=== PATIENT | male | born 1995 | race Caucasian/White ===

== ENCOUNTER 2021-12-22 08:21 | Outpatient (CLI) | payer OTHER, SELFPAY ==
--- NOTE | 2021-12-22 10:00 | US_ITS ---
WS: [id number] Gallbladder and right upper quadrant ultrasound, 12/22/2021 Clinical Data: GNERALIZED ABDOMINAL PAIN Comparison: None. Findings: The gallbladder shows numerous small stones. The wall measures 0.2 cm with no pericholecystic fluid. The common bile duct is 0.4 cm and there are no intrahepatic ductal abnormalities. Liver shows no cysts, masses or dilated intrahepatic ducts. The echotexture is uniform and there is n ormal portal venous flow. The pancreas is not obscured by overlying bowel gas and no cyst, pseudocyst, or evidence of pancreati tis is noted. Right kidney measures 11.2 cm and no cyst, masses or hydronephrosis can be seen. The aorta and inferior vena cava show no vascular abnormalities. US/US abdomen limited 52951 Impression: Small gallstones.
== END 2021-12-22 08:22 | disposition home or self-care (01) ==
LOC: RAD 08:25
PROVIDERS: PCP Nurse Practitioner Family; Visit Provider Nurse Practitioner Family
DX: R10.84 Generalized abdominal pain (principal); K80.80 Other cholelithiasis without obstruction
CPT/HCPCS: 76705

== ENCOUNTER 2022-01-01 16:39 | Outpatient (CLI) | payer OTHER, SELFPAY ==
[2022-01-01 17:26] LABS: Basophils # 0.1 10^3/uL (0.0-0.1); Eosinophils # 0.1 10^3/uL (0.0-0.8); Eosinophils % 2.2 %; Hematocrit 38.9 % (42.0-52.0); Hemoglobin 13.8 g/dL (11.7-16.6); Lymphocytes # 1.6 10^3/uL (0.8-4.8); Lymphocytes % 32.7 %; Mean Corpuscular HGB Conc 35.5 g/dL (30.0-36.0); Mean Corpuscular Hemoglobin 31.9 pg (28.0-34.0); Mean Corpuscular Volume 89.8 fl (80-94); Mean Platelet Volume 10.1 fL (7.4-10.4); Monocytes # 0.4 10^3/uL (0.2-0.9); Monocytes % 7.6 %; Neutrophils # 2.75 10^3/uL (1.8-7.7); Neutrophils % 56.3 %; Nucleated Red Blood Cells % 0 %; Platelet Count 171 10^3/cmm (130-400); Red Blood Count 4.33 10^6/uL (4.1-5.3); Red Cell Distribution Width 11.8 % (12.1-15.1); White Blood Count 4.9 10^3/uL (4.0-10.0)
== END 2022-01-01 16:40 | disposition home or self-care (01) ==
LOC: LAB 16:42
PROVIDERS: PCP Nurse Practitioner Family; Visit Provider Surgery
DX: K80.20 Calculus of gallbladder without cholecystitis without obstruction (principal); K21.9 Gastro-esophageal reflux disease without esophagitis
CPT/HCPCS: 36415; 85025

== ENCOUNTER 2022-01-09 16:34 | Outpatient (CLI) | payer OTHER, SELFPAY ==
[2022-01-09 17:50] LABS: Alanine Aminotransferase 14 U/L (0-41); Albumin Level 4.6 g/dL (3.5-5.2); Alkaline Phosphatase 61 U/L (40-130); Aspartate Amino Transferase 21 U/L (0-40); Blood Urea Nitrogen 7 mg/dL (6-20); Calcium 8.9 mg/dL (8.5-10.5); Carbon Dioxide 30 mmol/L (22-29); Chloride 101 mmol/L (98-107); Globulin 2.5 g/dL (1.3-4.6); Glomerular Filtration Rate 135.3 mL/min (90-130); Glucose 86 mg/dL (65-115); Osmolality Calculated 287 mOsm/kg (285-295); Sodium 140 mmol/L (136-145); Total Bilirubin 0.8 mg/dL (0.15-1.2); Total Protein 7.1 g/dL (6.6-8.7)
== END 2022-01-09 16:35 | disposition home or self-care (01) ==
LOC: LAB 16:43
PROVIDERS: PCP Nurse Practitioner Family; Visit Provider Surgery
DX: K80.20 Calculus of gallbladder without cholecystitis without obstruction (principal); K21.9 Gastro-esophageal reflux disease without esophagitis
CPT/HCPCS: 36415; 80053

== ENCOUNTER 2022-01-16 10:39 | Day surgery (SDC) | payer OTHER, SELFPAY ==
[2022-01-16] VITALS (11 sets, daily range): BP systolic 132–154; BP diastolic 78–92; PULSE 60–71; RESP 14–18; TEMP 36.2–36.8; O2SAT 95–100
[2022-01-16] MEDS: acetaminophen 1,000 MG/100 ML PIGGYBACK 400 MG IV (12:04)
--- NOTE | 2022-01-16 12:25 | P.ANESASSM_ITS ---
Pre-Anesthetic Assessment Height/Weight: Height 1.93 m Weight 73.482 kg Temp Pulse Resp BP Pulse Ox O2 Del Method 98.2 F 70 16 142/78 100 01/16/22 11:12 01/16/22 11:12 01/16/22 11:12 01/16/22 11:12 01/16/22 11:12 01/16/22 11:22 Preop Diagnosis: Symptomatic cholelithiasis and acid reflux Operation Date: 01/16/22 12:40 Proposed Procedures p Laparoscopic Cholecystectomy 03267/EGD 02404,K21.9,R10.9(Not Applicable) - Wally Chacko MD s EGD(Not Applicable) - Wally Chacko MD Familial anesthetic complications: None Was Beta Elliott taken within 24 hours: N/A Was Clonidine taken within 24 hours: N/A Last intake: Intake Last Liquid Date 01/15/22 Last Liquid Time 15:00 Last Solid Date 01/15/22 Last Solid Time 15:00 Social No alcohol and No tobacco Exam alert, oriented x 3, clear to auscultation bilaterally and regular rate & rhythm Airway Mallampati: Class I Dentition: full GI Gastroesophageal Reflux Disease Anesthetic Plan ASA status: 2 Anesthesia: General Risk of > 500 ml blood loss (7ml/kg in children): No Medications/Allergies Home Medications Medication Instructions Recorded Confirmed Last Taken Type pantoprazole 40 mg tablet,delayed 40 mg PO DAILY 08/28/21 01/16/22 01/15/22 History release sucralfate 1 gram tablet 1 g PO BID 08/28/21 01/15/22 Unknown History Allergies Allergy/AdvReac Type Severity Reaction Status Date / Time No Known Allergies Allergy Verified 12/29/21 08:52 [facility] Anesthesia Family History Other Diabetes Denies family history of CAD (coronary artery disease) Dementia Chronic kidney disease (CKD) Anesthesia complication Lung disease Cancer Stroke Social History Smoking and tobacco status: never smoked Alcohol intake: never Lives independently: Yes Household members: spouse Data Anesthesia Cardiac Studies: No Data to Display
[2022-01-16] MEDS: sodium chloride 0.9% 1,000 ML 30 ML IV (12:33)
--- NOTE | 2022-01-16 14:25 | W.PM.OPSUD ---
Surgery/Procedure H&P Update DATE OF PROCEDURE: January 16, 2022 DATE H&P PERFORMED: 12/27/21 H&P UPDATE INFORMATION: I have reviewed H&P completed within last 30 days, I have examined patient prior to procedure and No changes to prior documentation PREOP DIAGNOSIS: Symptomatic cholelithiasis and acid reflux PRIMARY INDICATION FOR PROCEDURE: The same PLANNED PROCEDURE: Operation Date: 01/16/22 12:40 Proposed Procedures p Laparoscopic Cholecystectomy 52860/EGD 81829,K21.9,R10.9(Not Applicable) - Wally Chacko MD s EGD(Not Applicable) - Wally Chacko MD
[2022-01-16] MEDS: ampicillin-sulbactam 3 GM in sodium chloride 0.9% (plus) 50 ML IV (14:37)
[2022-01-16] MEDS: lidocaine 2% INJ 20 mL INJECTION (14:57)
--- NOTE | 2022-01-16 15:52 | PM.OP ---
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 Time-out was done verifying the patient's name/date of /planned procedure and destination after the procedure, all were in agreement. SCDs confirmed to be functioning, preoperative antibiotics administered per protocol, and beta mark protocol was confirmed. Patient was appropriately secured to the table, footboard was applied to the OR table, before prep and drape anesthesia was asked to tilt the table back and forth to make sure that the patient is appropriately secured and she was. Prep and drape of the abdomen was done under the usual sterile technique, followed by that supraumbilical skin incision,skin incision was done by a 15 blade knife, and stay sutures were applied to the fascia and Brock trocar technique was used to enter the abdominal without injuring any abdominal viscera, started by low flow gas insufflation followed by a high flow, started with a 10 mm laparoscope and under direct vision there was no evidence of any injuries, the scope then switched to a 30? ,10 millimeter scope and under direct visualization 5 millimeter trocar was inserted in the epigastric region followed by two 5 mm trocars were inserted in the right upper quadrant that was done after injection of local lidocaine 2% at all incision sites. Gallbladder showed chronic cholecystitis. Patient was then positioned in the head up and tilted to the left. Ratcheted forceps were introduced into the lateral most 5mm port and was applied unto the fundus of the gallbladder cephalad and using Bullet forceps the infundibulum of the gallbladder was retracted laterally. Using [place] forceps then L-hook cautery to dissect the peritoneum overlying the Calot's triangle which was then opened medially and laterally until the cystic duct and the cystic artery were skeletonized. Dissection was carried along the body of the gallbladder and after ensuring critical view of safety was identfied. Cystic duct and cystic artery where seen connected to the gallbladder. Clips were applied on the cystic duct towards the common bile duct 1 towards the gallbladder then divided is in sharp scissors, 2 clips were then applied onto the cystic artery and 1 towards the gallbladder and divided by sharp scissors. Dissection was then carried along of the gallbladder from the gallbladder fossa using cautery as well as sharp dissection with heat energy. The gallbladder then was dissected out from the gallbladder fossa totally , cholecystectomy was then achieved and was placed in an Endo Catch bag and then retrieved from the Brock trocar site under direct visualization using a 5 mm 30? scope through the epigastric trocar, specimen was then passed to the circulating nurse to go for permanent pathology,irrigation and hemostasis was done to the gallbladder fossa after hemostasis was secured, final survey laparoscopy was done that showed no injuries. Suction irrigation was obtained. While the patient is still under anesthesia ,I scrubbed out and started introducing the EGD via the mouth under direct visualization.I was able to assess the esophagus stomach and duodenum till the second part, normal findings. GE junction at 40 cm from the incisors. The scope was retrieved under direct visualization and gas was deflated,no biopsies were obtained at that point. The procedure was done under the laparo endoscopic view. Afterwards I scrubbed back in.The supraumbilical fascial defect was then closed using interrupted number one PDS sutures using a fascial closure device ;Brett Duran under direct visualization.A final Survery Laproscopy showed no evience of injuries or bleeding.Following that Gas was allowed to deflate,Trocars were then taken out under direct vision there was no evidence of bleeding. Specimen was passed to the circulating nurse for permanent pathology. No drains were placed and the supraumbilical incision as well as all trocar sites were closed by 3/0 Vicryl followed by 4-0 Monocryl to approximate the skin edges of the incisions , dressing was applied in the form of surical glue and the patient patient got extubated and was taken to recovery area in a stable condition. Count of sponges,needles and instruments were completed at the end of the procedure I was present for the whole entire procedure.
[2022-01-16] MEDS: fentaNYL 50 mcg/mL INJ 2mL IVP (16:11)
[2022-01-16] MEDS: ondansetron 2 mg/ML SDV 2 mL 4 MG IVP ×2 (16:33→16:45)
--- NOTE | 2022-01-16 17:00 | ANE.PACU2 ---
Inpatient post-anesthesia follow up: Airway intact: Yes Vital signs: Temperature 97.8 F Pulse Rate 71 Respiratory Rate 16 Blood Pressure 132/84 Pulse Oximetry 95 Oxygen Delivery Me thod Room Air Oxygen Flow Rate 6 Fraction of Inspir ed Oxygen Hydration adequate: Yes Nausea and vomiting: No Pain level: 1 Mental status: Baseline
== END 2022-01-16 17:45 | disposition home or self-care (01) ==
PROVIDERS: PCP Nurse Practitioner Family; Visit Provider Surgery
PROC: 0FT44ZZ Resection of Gallbladder, Percutaneous Endoscopic Approach (ICD-10-PCS; CPT 47562; principal; 2022-01-16 12:30)
PROC: 0DJ08ZZ Inspection of Upper Intestinal Tract, Via Natural or Artificial Opening Endoscopic (ICD-10-PCS; CPT 43235; 2022-01-16 12:30)
DX: K81.1 Chronic cholecystitis (principal); K21.9 Gastro-esophageal reflux disease without esophagitis
CPT/HCPCS: 43235; 47562; 88304; J0295; J1100; J1170; J2405; J2704; J2710; J3010; J3490; J7030